=== PATIENT | female | born 1990 | race Caucasian/White ===

== ENCOUNTER 2016-08-01 16:05 | Emergency (ER) | payer OTHER ==
[~2016-08-01] VITALS: Ht 157.5 cm; Wt 73.4 kg
[~2016-08-01 16:05] MED LIST: ATIVAN1 MG PO; BACTRIM,SEPT1 TABLET PO; BENADRYL25 MG PO; BENTYL10 MG PO; CONCERTA36 MG PO; DEPAKOTE500 MG PO; FLEXERIL5 MG PO; IMODIUM MS REL1 EACH PO; NAPROSYN500 MG PO; ONDANSETRON HCL4 MG PO; TOPAMAX50 MG PO; WELLBUTRIN SR150 MG PO; YAZ 28 TABLET1 EACH PO; ZOFRAN ODT4 MG PO
[2016-08-01 16:25] VITALS: BP 106/61
== END 2016-08-01 20:00 | disposition left against medical advice (07) ==
LOC: EME 16:05
DX: R52 Pain, unspecified (principal); Z91.81 History of falling; Z53.21 Procedure and treatment not carried out due to patient leaving prior to being seen by health care provider

== ENCOUNTER 2016-10-27 13:30 | Emergency (ER) | payer OTHER ==
[~2016-10-27] VITALS: Ht 157.5 cm; Wt 73.2 kg
[2016-10-27 16:00] LABS: HEMATOCRIT 40.5 % (36.0-46.0); MCH 28.8 PG (29.0-34.0); MCHC 33.1 G/DL (30.0-36.0); MCV 86.9 FL (83-99); MEAN PLAT.VOLUME 10.7 uM^3 (9.5-12.4); PLATELET COUNT 314 K/uL (156-360); RBC DIS.WIDTH-CV 12.9 % (11.8-14.6); RBC DIS.WIDTH-SD 40.5 % (39-53); RED BLOOD COUNT 4.66 M/uL (3.80-5.20); WHITE BLOOD COUNT 7.3 K/uL (4.1-10.2)
[2016-10-27 16:12] LABS: CHLORIDE 111 mEq/L (99-109); POTASSIUM 3.8 mEq/L (3.7-5.4); SODIUM 139 mEq/L (136-147)
[2016-10-27 16:13] LABS: GLUCOSE 90 mg/dL (70-99)
[2016-10-27 16:15] LABS: ANION GAP 10 MEQ/L (2-14)
[2016-10-27 16:17] LABS: GFR ESTIMATE (CALCULATED) > 59 mL/min/
[2016-10-27 16:18] LABS: UREA NITROGEN (BUN) 7 mg/dL (9-23)
[2016-10-27 16:22] LABS: TROP-I INTERPRETATION NEGATIVE; TROPONIN-I < 0.01 ng/mL (0.0-0.30)
[2016-10-27 16:23] LABS: D-DIMER ELISA 0.17 mg/L FEU (< 0.57)
[2016-10-27 16:26] LABS: QUANTITATIVE HCG < 4.0 MIU/ML
[2016-10-27 17:25] LABS: TOTAL BILIRUBIN 0.3 mg/dL (0.0-1.0)
[2016-10-27 17:26] LABS: ALKALINE PHOSPHATASE 53 IU/L (3-129)
[2016-10-27 17:29] LABS: DIRECT BILIRUBIN 0.2 mg/dL (0.0-0.3)
[2016-10-27 17:30] LABS: LIPASE 37 U/L (1.0-51.0)
[2016-10-27 19:24] LABS: TROP-I INTERPRETATION NEGATIVE; TROPONIN-I < 0.01 ng/mL (0.0-0.30)
[2016-10-27] MEDS ORDERED: VIBRAMYCIN100 MG PO (19:43)
[2016-10-27 20:01] VITALS: BP 117/99
== END 2016-10-27 20:02 | disposition home or self-care (01) ==
LOC: EME 13:30
PROVIDERS: Physician Assistant Medical
PROC: 3E0234Z Introduction of Serum, Toxoid and Vaccine into Muscle, Percutaneous Approach (ICD-10-PCS; principal; 2016-10-27)
DX: R07.9 Chest pain, unspecified (principal); S61.451A Open bite of right hand, initial encounter; W55.01XA Bitten by cat, initial encounter; R05 Cough; R11.0 Nausea; Z23 Encounter for immunization; F17.200 Nicotine dependence, unspecified, uncomplicated
CPT/HCPCS: 71020; 80048; 80076; 83690; 84484; 84702; 85027; 85379; 93005; 99281; 99285

== ENCOUNTER 2016-10-31 12:50 | Emergency (ER) | payer OTHER ==
[~2016-10-31 12:50] MED LIST changes: +VIBRAMYCIN100 MG PO
== END 2016-10-31 13:11 | disposition left against medical advice (07) ==
LOC: EME 12:50
DX: Z20.3 Contact with and (suspected) exposure to rabies (principal); Z53.21 Procedure and treatment not carried out due to patient leaving prior to being seen by health care provider

== ENCOUNTER 2017-03-11 17:51 | Emergency (ER) | payer OTHER ==
[~2017-03-11] VITALS: Ht 157.5 cm; Wt 74.2 kg
[2017-03-11 21:12] VITALS: BP 126/103
== END 2017-03-11 21:13 | disposition home or self-care (01) ==
LOC: EME 17:51
PROC: 0HQMXZZ Repair Right Foot Skin, External Approach (ICD-10-PCS; principal; 2017-03-11)
DX: S91.311A Laceration without foreign body, right foot, initial encounter (principal); W26.9XXA Contact with unspecified sharp object(s), initial encounter; Y93.01 Activity, walking, marching and hiking; F17.200 Nicotine dependence, unspecified, uncomplicated; Z88.0 Allergy status to penicillin; Z91.040 Latex allergy status
CPT/HCPCS: 73630; 99281; 99283